=== PATIENT | female | born 1935 | race Caucasian/White ===

== ENCOUNTER 2020-12-25 20:45 | Outpatient (CLI) | payer MEDICARE | END 2020-12-25 20:46 | disposition critical access hospital (66) | LOC: EMS 20:45 | DX: S69.92XA Unspecified injury of left wrist, hand and finger(s), initial encounter (principal); W10.9XXA Fall (on) (from) unspecified stairs and steps, initial encounter; Y92.008 Other place in unspecified non-institutional (private) residence as the place of occurrence of the external cause | CPT/HCPCS: A0425; A0427 ==

== ENCOUNTER 2020-12-25 21:24 | Day surgery (SDC) | payer MEDICARE ==
[2020-12-25] MEDS ORDERED: SODIUM CHLORIDE 0.9% 1,000 ML IV STA (21:37)
[2020-12-25] MEDS ORDERED: MORPHINE 2 MG/ML CARPUJECT IVP STA (21:38)
[2020-12-25] MEDS ORDERED: AMPICILLIN/SULBACTAM 3 GM in SODIUM CHLORIDE 0.9% MINIBAG 100 ML IV STA (21:39)
--- NOTE | 2020-12-25 21:40 | ED Physician Documentation ---
History of Present Illness - Stated complaint Stated Complaint: GLF, LEFT WRIST INJURY - Chief complaint Chief Complaint: Trauma Ext - History obtained from History obtained from: Patient - Additonal information Additional information: 85-year-old woman presents status post fall after missing a step and falling onto her left hand, elbow, and hitting the left side of her forehead without loss of consciousness. She is not on blood thinners. Denies other injury. Review of Systems Cardiac: denies: Chest pain / pressure Respiratory: denies: Dyspnea GI: denies: Abdominal Pain Skin: denies: Lesions, Abrasion (s) Musculoskeletal: reports: Extremity pain, Extremity swelling. denies: Neck pain, Back pain Neurologic: denies: Focal weakness, Numbness PD PAST MEDICAL HISTORY - Present Medications Home Medications: Ambulatory Orders Medication Instructions Recorded Confirmed Atorvastatin [Lipitor] 10 mg ORAL DAILY 12/25/20 12/25/20 Sertraline [Zoloft] 25 mg PO DAILY 12/25/20 12/25/20 - Allergies Allergies/Adverse Reactions: Allergies Allergy/AdvReac Type Severity Reaction Status Date / Time No Known Drug Allergies Allergy Verified 12/25/20 21:38 PD ED PE NORMAL - Vitals Vital signs reviewed: Yes - General General: Alert and oriented X 3, No acute distress, Well developed/nourished - HEENT HEENT: Atraumatic, PERRL, EOMI - Neck Neck: Supple, no meningeal sign - Cardiac Cardiac: RRR - Respiratory Respiratory: No respiratory distress, Clear bilaterally - Abdomen Abdomen: Non tender, Non distended, Other (pelvis stable) - Back Back: No spinal TTP - Derm Derm: Normal color, Warm and dry - Extremities Extremities: Other (L clavicle ttp. L distal forearm with visible deformity and open fracture) - Neuro Neuro: Alert and oriented X 3, No motor deficit, No sensory deficit - Psych Psych: Normal mood, Normal affect Results - Vitals Vitals: Vital Signs - 24 hr 12/25/20 12/25/20 12/25/20 21:25 21:38 23:38 Temperature 35.8 C L 36 C L 36.3 C L Heart Rate 61 60 85 Heart Rate [ Radial] Respiratory 16 15 16 Rate Blood Pressure 140/85 H 127/76 143/78 H Blood Pressure [Right Brachial artery] O2 Saturation 100 100 100 12/26/20 12/26/20 12/26/20 01:00 02:40 05:48 Temperature 36.7 C 36.6 C Heart Rate 81 Heart Rate [ 86 89 Radial] Respiratory 15 22 20 Rate Blood Pressure 136/78 H Blood Pressure 143/85 H 111/57 L [Right Brachial artery] O2 Saturation 99 100 96 Oxygen O2 Source Room air - Labs Labs: Laboratory Tests 12/25/20 12/25/20 12/26/20 21:46 21:46 00:20 WBC 8.1 RBC 3.95 L Hgb 12.5 Hct 38.6 MCV 97.7 MCH 31.6 H MCHC 32.4 RDW 12.5 Plt Count 176 MPV 10.0 Neut # (Auto) 4.1 Lymph # (Auto) 3.1 Beaver # (Auto) 0.8 Eos # (Auto) 0.1 Baso # (Auto) 0.0 Absolute Nucleated RBC 0.00 Nucleated RBC % 0.0 Sodium 138 Potassium 4.0 Chloride 104 Carbon Dioxide 23 Anion Gap 11.0 BUN 32 H Creatinine 1.1 H Estimated GFR (MDRD) 47 L Glucose 129 H Calcium 8.6 Total Bilirubin 0.6 AST 20 ALT 13 Alkaline Phosphatase 82 Total Protein 6.9 Albumin 3.8 Globulin 3.1 Albumin/Globulin Ratio 1.2 Lipase 35 Nasal Adenovirus (PCR) NOT DETECTED Nasal B. parapertussis DNA (PCR) NOT DETECTED Nasal Coronavir 229E PCR NOT DETECTED Nasal Coronavir HKU1 PCR NOT DETECTED Nasal Coronavir NL63 PCR NOT DETECTED Nasal Coronavir OC43 PCR NOT DETECTED Nasal Enterovir/Rhinovir PCR NOT DETECTED Nasal Influenza B PCR NOT DETECTED Nasal Influenza A PCR NOT DETECTED Nasal Parainfluen 1 PCR NOT DETECTED Nasal Parainfluen 2 PCR NOT DETECTED Nasal Parainfluen 3 PCR NOT DETECTED Nasal Parainfluen 4 PCR NOT DETECTED Nasal RSV (PCR) NOT DETECTED Nasal B.pertussis DNA PCR NOT DETECTED Nasal C.pneumoniae (PCR) NOT DETECTED Heath Human Metapneumo PCR NOT DETECTED Nasal M.pneumoniae (PCR) NOT DETECTED Nasal SARS-CoV-2 (PCR) NOT DETECTED Ethyl Alcohol < 5.0 Procedures - Reduction Body part reduced: Left, Forearm Fracture or dislocation: Fracture Anesthesia: Dilaudid Reduction aftercare: Xray confirms reduction, Alignment improved, Splint applied, Sling, Patient tolerated well PD MEDICAL DECISION MAKING - ED course ED course: 85-year-old relatively healthy woman presents with distal comminuted open left radius and ulna fracture. antibiotics given. fracture reduced. Discussed with Dr. Landaverde for admission to same-day surgery. Discussed with Dr. Gregory for consulting for medical clearance. Departure - Departure Disposition: ED Transfer to [facility] Clinical Impression: Distal radius fracture, left, Fx distal ulna-open, Fracture, clavicle, Fall from standing Condition: Stable Discharge Date/Time: 12/26/20 02:06
[2020-12-25 21:50] LABS: BASOPHILS % (AUTO) 0.4 %; EOSINOPHILS # (AUTO) 0.1 10^3/uL (0.0-0.7); EOSINOPHILS % (AUTO) 1.4 %; HCT - HEMATOCRIT 38.6 % (37.0-47.0); HGB - HEMOGLOBIN 12.5 g/dL (12.0-16.0); LYMPHOCYTES # (AUTO) 3.1 10^3/uL (1.5-3.5); LYMPHOCYTES % (AUTO) 37.8 %; MEAN CORPUSCULAR HEMOGLOBIN 31.6 pg (27.0-31.0); MEAN CORPUSCULAR HGB CONC 32.4 g/dL (32.0-36.0); MEAN CORPUSCULAR VOLUME 97.7 fL (81.0-99.0); MONOCYTES # (AUTO) 0.8 10^3/uL (0.0-1.0); MONOCYTES % (AUTO) 9.4 %; NEUTROPHILS # (AUTO) 4.1 10^3/uL (1.5-6.6); NEUTROPHILS % (AUTO) 50.9 %; PLT - PLATELET COUNT 176 10^3/uL (130-450); RED BLOOD COUNT 3.95 10^6/uL (4.20-5.40); RED CELL DISTRIBUTION WIDTH 12.5 % (12.0-15.0); WHITE BLOOD COUNT 8.1 x10^3/uL (4.8-10.8)
[2020-12-25 22:04] LABS: ALBUMIN 3.8 g/dL (3.2-5.5); ALBUMIN/GLOBULIN RATIO 1.2 (1.0-2.2); ALKALINE PHOSPHATASE 82 IU/L (42-121); ALT ALANINE AMINOTRANSFERASE 13 IU/L (10-60); AST ASPARTATE AMINOTRANSFERASE 20 IU/L (10-42); BILIRUBIN,TOTAL 0.6 mg/dL (0.2-1.0); BUN - BLOOD UREA NITROGEN 32 mg/dL (6-20); CALCIUM 8.6 mg/dL (8.5-10.3); CARBON DIOXIDE - CO2 23 mmol/L (21-32); CHLORIDE 104 mmol/L (101-111); CREATININE 1.1 mg/dL (0.4-1.0); ETOH - ETHANOL < 5.0 mg/dL; GFR - MDRD 47 (>89); GLUCOSE 129 mg/dL (70-100); LIPASE 35 U/L (22-51); SODIUM 138 mmol/L (135-145); TOTAL PROTEIN 6.9 g/dL (6.7-8.2)
[2020-12-25] MEDS ORDERED: IOPAMIDOL-300 100 ML VIAL ONE (22:20)
[2020-12-25] MEDS ORDERED: IOPAMIDOL-300 100 ML VIAL IVP ONE (22:57)
[2020-12-25] MEDS ORDERED: HYDROmorphone 0.5 MG/0.5 ML SYRINGE IVP STA (23:19)
[2020-12-26] MEDS ORDERED: KETOROLAC 15 MG/ML VIAL IVP PRN ×2 (00:24→02:56)
[2020-12-26] MEDS ORDERED: HYDROmorphone 0.5 MG/0.5 ML SYRINGE IVP PRN ×2 (00:24→10:31)
[2020-12-26] MEDS ORDERED: ONDANSETRON 4 MG/2 ML VIAL IVP PRN ×3 (00:24→10:31)
[2020-12-26] MEDS ORDERED: METOCLOPRAMIDE 10 MG/2 ML VIAL IVP PRN ×2 (00:24→02:56)
[2020-12-26] MEDS ORDERED: ACETAMINOPHEN 325 MG TABLET PO PRN ×2 (00:24→02:55)
[2020-12-26] MEDS ORDERED: HYDROmorphone 1 MG/ML CARPUJECT IVP STA ×2 (00:31→01:09)
[2020-12-26] MEDS ORDERED: oxyCODONE 5 MG TABLET PO PRN ×3 (00:49→13:16)
--- NOTE | 2020-12-26 00:55 | CONSULTATION NOTE ---
Referring Provider Name of Referring Provider:: Dr. Eduar Landaverde Consult Date: 12/26/20 Chief Complaint - Chief Complaint Chief Complaint: Left wrist pain History of Present Illness - Admitted From Admitted From:: Home - History Obtained From Records Reviewed: Yes History obtained from: Patient, Daugther, ER Physician, EMR - History of Present Illness HPI Comment/Other: This is a 85-year-old female with a past medical history significant for anxiety, hyperlipidemia who presents today after a fall. She is visiting from [facility] and is here on vacation which started today. She reports that she was on the deck when she had a misstep and fell on her left side. She denie s any loss of consciousness or syncope. From what she can remember, she believes she tried to catch herself with her left hand but ended up hitting her shoulder and head as well. She reports no headache or change in vision. She states most of her pain is in her left wrist and left shoulder. She reports no numbness in the left upper extremity. She has sensation throughout her arm. She reports being relatively healthy. She is normally quite active and ambulates on her own. She denies any cardiac history including heart disease, heart failure, arrhythmia. She is able to walk a flight of stairs without chest pain or dyspnea. In the emergency department, x-ray of the left wrist revealed significantly comminuted and displaced fracture of the distal radius and ulna. CT of the chest revealed an acute fracture of the medial aspect of the left clavicle. Given the above findings, orthopedic surgery plan to take the patient to the OR tomorrow for intervention and medicine was consulted for preop evaluation. I did discuss goals of care with the patient and she would like to be a full code. History - Past Medical History Cardiovascular: reports: Hypertension, High cholesterol Psych: reports: Anxiety MRSA Hx?: No - Past Surgical History HEENT: reports: Cataracts - Family & Social History Family History Comment/Other: She reports her mother had a history of stroke later followed by an intracranial hemorrhage. Her father also had a stroke. Living arrangement: At home Social History Notes: She lives in [place] and is currently visiting [facility] on vacation. She is a non-smoker and rarely drinks alcohol. Meds/Allgy - Home Medications Home Medications: Ambulatory Orders Medication Instructions Recorded Confirmed Atorvastatin [Lipitor] 10 mg ORAL DAILY 12/25/20 12/25/20 Sertraline [Zoloft] 25 mg PO DAILY 12/25/20 12/25/20 - Allergies Allergies/Adverse Reactions: Allergies Allergy/AdvReac Type Severity Reaction Status Date / Time No Known Drug Allergies Allergy Verified 12/25/20 21:38 Review of Systems - Constitutional Constitutional: denies: Fever, Chills - Eyes Eyes: denies: Blurred vision, Vision loss - Cardiovascular Cariovascular: denies: Chest pain, Lightheadedness, Syncope, Exertional dyspnea, Decr. exercise tolerance - Respiratory Respiratory: denies: Cough, SOB at rest, SOB with exertion - Gastrointestinal Gastrointestinal: denies: Abdominal pain, Nausea, Vomiting - Genitourinary Genitourinary: denies: Dysuria, Frequency, Urgency, Hematuria - Musculoskeletal Musculoskeletal: reports: Muscle aches, Limited range of motion, Joint pain - Integumentary Integumentary: denies: Rash - Neurological Neurological: denies: General weakness, Headache, Dizziness, Numbness, Pre- existing deficit - Hematologic/Lymphatic Hematologic/Lymphatic: denies: Bleeding tendencies - All Other Systems All Other Systems: reports: Reviewed and negative Exam - Vital Signs Reviewed Vital Signs: Yes Vital Signs: Vital Signs x48h Temp Pulse Resp BP Pulse Ox 12/25/20 23:38 36.3 C L 85 16 143/78 H 100 12/25/20 21:38 36 C L 60 15 127/76 100 12/25/20 21:25 35.8 C L 61 16 140/85 H 100 - Physical Exam General Appearance: positive: No acute distress, Alert Eyes Bilateral: positive: Normal inspection, PERRL, Conjunctivae nml ENT: positive: ENT inspection nml Neck: positive: Nml inspection Respiratory: positive: No respiratory distress. negative: Wheezes, Rales Cardiovascular: positive: Regular rate & rhythm, No murmur. negative: Tachycardia Abdomen: positive: Non-tender, No distention. negative: Tenderness, Guarding, Rebound Skin: positive: Warm, Dry, Other (There is a small 5 x 4 cm abrasion over the left side of her scalp.) Extremities: positive: No pedal edema, Other (There is marked deformity of the distal left forearm with a small laceration over the posterior aspect of the forearm. There is also significant ecchymosis. Sensation is intact. Less than 2-second capillary refill.) Neurologic/Psychiatric: negative: Disoriented to person, Disoriented to place Conclusion/Plan - Diagnosis Diagnosis: 1) Preop evaluation. 2) Left distal radius and ulna fracture. 3) Left Clavicular fracture. 4) Anxiety. 5) Hyperlipidemia - Plan Plan: She is able to function greater than 4 METS and has no known cardiac history. She currently has no angina or dyspnea. Her Burnett perioperative risk is 0.2%. EKG reveals a sinus rhythm without evidence of ischemia. At this time, she is medically optimized to proceed with surgical intervention. We will continue the Dilaudid and oxycodone as needed for pain control. Management of the distal radius and ulna fracture as well as the clavicular fracture will be deferred to orthopedic surgery. The distal fracture will be reduced by the ER Physician prior to admission. We will continue her home atorvastatin and sertraline for her anxiety and hyperlipidemia. - Lab Results Fish Bones: 12/25/20 21:46 12/25/20 21:46 - Diagnostic Imaging Results Diagnostic Imaging Results: positive: Prelim report reviewed - EKG Results EKG Interpreted Independently: Yes EKG Comparison: No prior EKG EKG Findings: EKG reveals a normal sinus rhythm without evidence of ischemia.
[2020-12-26] MEDS ORDERED: LACTATED RINGERS 1,000 ML IV SCH ×3 (01:00→11:00)
[2020-12-26] MEDS ORDERED: HYDROmorphone 1 MG/ML CARPUJECT IVP PRN ×2 (01:07→02:55)
[2020-12-26 01:39] LABS: B. PARAPERTUSSIS- RESP PCR PAN NOT DETECTED; B. PERTUSSIS- RESP PCR PANEL NOT DETECTED; C. PNEUMONIAE- RESP PCR PANEL NOT DETECTED; CORONAVIRUS 229E-RESP PCR NOT DETECTED; CORONAVIRUS HKU1-RESP PCR NOT DETECTED; CORONAVIRUS NL63-RESP PCR NOT DETECTED; CORONAVIRUS OC43-RESP PCR NOT DETECTED; HUMAN METAPNEUMOVIRUS NOT DETECTED; INFLUENZA A- RESP PCR PANEL NOT DETECTED; INFLUENZA B - RESP PCR PANEL NOT DETECTED; M. PNEUMONIAE- RESP PCR PANEL NOT DETECTED; PARAINFLUENZA VIRUS 1 NOT DETECTED; PARAINFLUENZA VIRUS 2 NOT DETECTED; PARAINFLUENZA VIRUS 3 NOT DETECTED; PARAINFLUENZA VIRUS 4 NOT DETECTED; RHINOVIRUS/ENTEROVIRUS NOT DETECTED; RSV- RESP PCR PANEL NOT DETECTED; SARS-CoV-2 -RESP PCR PANEL NOT DETECTED
[2020-12-26] MEDS ORDERED: KETOROLAC 15 MG/ML VIAL ONE (02:42)
--- NOTE | 2020-12-26 08:39 | HISTORY & PHYSICAL EXAMINATION ---
HPI - History Obtained From History obtained from: Patient, Family (Medical providers) Exam limitations: No limitations - History of Present Illness Severity at the worst: reports: Moderate HPI Comment/Other: This is a 85-year-old woman on vacation with family in the [place] area. She [place] staying [place] and fell yesterday evening when she took a misstep on some steps, fell onto her left side including outstretched left hand, shoulder and head. She has localized pain primarily to the left wri st but also some in the clavicle but to lesser degree. She denies chest pain, shortness of breath, dizziness, syncope or loss of consciousness associated with her fall. She was seen in the emergency room following the fall and evaluated by Dr. Dalal. She was admitted to the hospital for evaluation by her hospitalist Dr. Verdugo and myself.She denies previous problems with her left wrist. She denies neurologic symptoms to her left hand. She denies pain to left elbow. She was given intravenous antibiotics for open presumed fracture of the left wrist, closed reduction and sugar tong splint toIn the emergency room.She seems to be doing well now, pain is controlled to left wrist. Her general health is relatively good. PMH/PSH - Past Medical History Cardiovascular: positive: Hypertension, High cholesterol Psych: positive: Anxiety MRSA Hx?: No - Past Surgical History HEENT: positive: Cataracts Social & Family Hx - Social History Does the pt smoke?: No Smoking Status: Never smoker Does the pt drink ETOH?: No Does the pt have substance abuse?: No Meds/Allgy - Home Medications Home Medications: Ambulatory Orders Medication Instructions Recorded Confirmed Atorvastatin [Lipitor] 10 mg ORAL DAILY 12/25/20 12/25/20 Sertraline [Zoloft] 25 mg PO DAILY 12/25/20 12/25/20 - Allergies Allergies/Adverse Reactions: Allergies Allergy/AdvReac Type Severity Reaction Status Date / Time No Known Drug Allergies Allergy Verified 12/25/20 21:38 Exam - Vital Signs Vital Signs: Vital Signs x48h Temp Pulse Pulse Resp BP BP Pulse Ox 12/26/20 05:48 36.6 C 89 20 111/57 L 96 12/26/20 02:40 36.7 C 86 22 143/85 H 100 12/26/20 01:00 81 15 136/78 H 99 - Physical Exam General Appearance: positive: No acute distress Respiratory: positive: No respiratory distress, Breath sounds nml Cardiovascular: positive: Regular rate & rhythm Peripheral Pulses: positive: 1+ Abdomen: positive: Non-tender Skin: positive: Color nml, Warm Neurologic/Psychiatric: positive: Oriented x3, Motor nml, Sensation nml Comments/Other: Examination of extremities: Tenderness medial left clavicle, no clinical deformity. Left shoulder is nontender without swelling or ecchymosis and no deformity. Left elbow is nontender without swelling. Left wrist show some deformity, swelling and laceration over the dorsum of the left wrist. This appears to be a puncture type wound, clean and not draining. There was some bloody drainage on the dressing. Color, motion and sensation intact to fingers left hand. Lower extremity examination shows no pain with movement of lower extremity joints. Results - Lab Results Fish Bones: 12/25/20 21:46 12/25/20 21:46 Other Lab Results: Lab Results x24hrs 12/26/20 12/25/20 12/25/20 Range/Units 00:20 21:46 21:46 WBC 8.1 (4.8-10.8) x10^3/uL RBC 3.95 L (4.20-5.40) 10^6/uL Hgb 12.5 (12.0-16.0) g/dL Hct 38.6 (37.0-47.0) % MCV 97.7 (81.0-99.0) fL MCH 31.6 H (27.0-31.0) pg MCHC 32.4 (32.0-36.0) g/dL RDW 12.5 (12.0-15.0) % Plt Count 176 (130-450) 10^3/uL MPV 10.0 (7.9-10.8) fL Neut # (Auto) 4.1 (1.5-6.6) 10^3/uL Lymph # (Auto) 3.1 (1.5-3.5) 10^3/uL Kaufman # (Auto) 0.8 (0.0-1.0) 10^3/uL Eos # (Auto) 0.1 (0.0-0.7) 10^3/uL Baso # (Auto) 0.0 (0.0-0.1) 10^3/uL Absolute Nucleated RBC 0.00 x10^3/uL Nucleated RBC % 0.0 /100WBC Sodium 138 (135-145) mmol/L Potassium 4.0 (3.5-5.0) mmol/L Chloride 104 (101-111) mmol/L Carbon Dioxide 23 (21-32) mmol/L Anion Gap 11.0 (6-13) BUN 32 H (6-20) mg/dL Creatinine 1.1 H (0.4-1.0) mg/dL Estimated GFR (MDRD) 47 L (>89) Glucose 129 H (70-100) mg/dL Calcium 8.6 (8.5-10.3) mg/dL Total Bilirubin 0.6 (0.2-1.0) mg/dL AST 20 (10-42) IU/L ALT 13 (10-60) IU/L Alkaline Phosphatase 82 (42-121) IU/L Total Protein 6.9 (6.7-8.2) g/dL Albumin 3.8 (3.2-5.5) g/dL Globulin 3.1 (2.1-4.2) g/dL Albumin/Globulin Ratio 1.2 (1.0-2.2) Lipase 35 (22-51) U/L Nasal Adenovirus (PCR) NOT DETECTED Nasal B. parapertussis DNA (PCR) NOT DETECTED Nasal Coronavir 229E PCR NOT DETECTED Nasal Coronavir HKU1 PCR NOT DETECTED Nasal Coronavir NL63 PCR NOT DETECTED Nasal Coronavir OC43 PCR NOT DETECTED Nasal Enterovir/Rhinovir PCR NOT DETECTED Nasal Influenza B PCR NOT DETECTED Nasal Influenza A PCR NOT DETECTED Nasal Parainfluen 1 PCR NOT DETECTED Nasal Parainfluen 2 PCR NOT DETECTED Nasal Parainfluen 3 PCR NOT DETECTED Nasal Parainfluen 4 PCR NOT DETECTED Nasal RSV (PCR) NOT DETECTED Nasal B.pertussis DNA PCR NOT DETECTED Nasal C.pneumoniae (PCR) NOT DETECTED Heath Human Metapneumo PCR NOT DETECTED Nasal M.pneumoniae (PCR) NOT DETECTED Nasal SARS-CoV-2 (PCR) NOT DETECTED Ethyl Alcohol < 5.0 mg/dL - Diagnostic Imaging Results Diagnostic Imaging Results: negative: Read independently (X-rays of the left wrist show markedly displaced left distal radius and distal ulna fractures, comminuted fracture, primarily extra-articular, shortening and overriding of fracture of distal radius. I suspect there was probable bone protrusion through skin from the marked displacement of the proxim) - Other Other Results/Comments: The x-rays of the left elbow are normal. CT scan suggest nondisplaced medial cl avicle fracture on left side. Impression/Plan - Problem List Problem List: 1. Open fracture left distal radius Plan irrigation and debridement of open fracture, antibiotics, open reduction internal fixation left distal radius and ulna. Although there is a variety of methods for wrist stabilization, I think the simplest and safest for her would be K wire fixation with multiple K wires. The main complication of this fracture in the short-term would be infection and long-term malunion with stiffness left wrist. Most patients her age with malunion still have reasonable function. Patient and daughter are in agreement to the recommended plan of treatment, most likely can be discharged today following surgery if she is doing well with orthopedic follow-up at home in the [place] area or she could return to [facility] be An informed consent has been obtained and signed by patient and family. I discussed the risk, goals and likelihood of achieving goals, alternatives, disability and rarely . 2. Left clavicle fracture This can be treated nonoperatively with a sling being utilized for pain. I have discussed the case with Dr. Verdugo who feels that there is no contraindications to surgery.
[2020-12-26] MEDS ORDERED: LIDOCAINE-MPF 2% 5 ML VIAL ONE (08:52)
[2020-12-26] MEDS ORDERED: PROPOFOL 200 MG/20 ML VIAL IVP ONE (08:52)
[2020-12-26] MEDS ORDERED: fentaNYL 100 MCG/2 ML VIAL ONE (08:53)
[2020-12-26] MEDS ORDERED: BUPIVACAINE 0.5%-EPI 1:200000 PF 30 ML VIAL SUBQ ONE (09:00)
[2020-12-26] MEDS ORDERED: BUPIVACAINE 0.5%-EPI 1:200000 PF 30 ML VIAL ONE (09:14)
[2020-12-26] MEDS ORDERED: DEXAMETHASONE 10 MG/ML VIAL ONE (09:37)
[2020-12-26] MEDS ORDERED: ROPIVACAINE 0.5% PF 20 ML AMPULE ONE ×2 (09:38)
[2020-12-26] MEDS ORDERED: ePHEDrine 50 MG/ML VIAL IVP ONE (10:13)
--- NOTE | 2020-12-26 10:16 | CT Report ---
PROCEDURE: CHEST W INDICATIONS: Chest trauma, blunt, high energy CONTRAST: IV CONTRAST: Isovue 300 ml: 100 PO CONTRAST: *NO PO CONTRAST TECHNIQUE: After the administration of intravenous contrast, images were acquired from the pulmonary apices to t he posterior costophrenic angles. Multiplanar MIP reformats were acquired. For radiation dose reduc tion, the following was used: automated exposure control, adjustment of mA and/or kV according to pa tient size. COMPARISON: Correlation is made with the accompanying CT examinations. FINDINGS: Image quality: Motion artifact is noted. Lungs and pleura: No acute air space opacities. No pleural effusions or pneumothorax. Central and peripheral airways are patent and normal in caliber. Mediastinum: Heart size is normal. No pericardial effusion. No mediastinal or hilar adenopathy by size criteria. Thoracic aorta and central pulmonary arteries are normal in size. Esophagus is vicente l in caliber. There is a small hiatal hernia. Bones and chest wall: There is a moderately displaced, comminuted fracture of the left medial clavic le, as on series 3 image 41. No displaced rib fractures can be seen. No suspicious bony lesions. No vertebral body compression fractures. There is accentuated thoracic kyphosis. Age-appropriate dege nerative changes are seen. No axillary or supraclavicular adenopathy by size criteria. The thyroid is normal in size and there are no incidental findings.. Abdomen: There is partial visualization of a simple appearing left renal cyst that measures up to 3. 3 cm. Visualized upper abdominal solid organs appear normal. Upper abdominal bowel loops are normal in caliber. IMPRESSION: Left medial clavicle fracture. No displaced rib fractures are seen. Incidental note is made of: Small hiatal hernia Left renal cyst partially seen Reviewed by: Reagan Gonsalves MD on 12/26/2020 9:15 AM LETHA Approved by: Reagan Gonsalves MD on 12/26/2020 9:15 AM LETHA Station ID: [id number]
--- NOTE | 2020-12-26 10:16 | ANESTHESIA ---
Pre-Anesthesia VS, & Labs - Diagnosis Diagnosis 1) Preop evaluation 2) Left distal radius and ulna fracture 3) Left Clavicular fracture 4) Anxiety 5) Hyperlipidemia - Procedure ORIF left wrist fracture Vital Signs: Temp Pulse Resp BP Pulse Ox 36.8 C 72 18 108/53 L 99 12/26/20 08:42 12/26/20 08:42 12/26/20 08:42 12/26/20 08:42 12/26/20 08:42 Height: 5 ft 3 in Weight (kg): 81.647 kg Body Mass Index: 31.8 BMI Classification: Obese - NPO >8 hours - Is Patient ?: No - Lab Results Current Lab Results: Laboratory Tests 12/25/20 21:46: Sodium 138, Potassium 4.0, Chloride 104, Carbon Dioxide 23, Anion Gap 11.0, BUN 32 H, Creatinine 1.1 H, Estimated GFR (MDRD) 47 L, Glucose 129 H, Calcium 8.6, Total Bilirubin 0.6, AST 20, ALT 13, Alkaline Phosphatase 82, Total Protein 6.9, Albumin 3.8, Globulin 3.1, Albumin/Globulin Ratio 1.2, Lipase 35, Ethyl Alcohol < 5.0 12/25/20 21:46: WBC 8.1, RBC 3.95 L, Hgb 12.5, Hct 38.6, MCV 97.7, MCH 31.6 H, MCHC 32.4, RDW 12.5, Plt Count 176, MPV 10.0, Neut # (Auto) 4.1, Lymph # (Auto) 3.1, Barber # (Auto) 0.8, Eos # (Auto) 0.1, Baso # (Auto) 0.0, Absolute Nucleated RBC 0.00, Nucleated RBC % 0.0 Lab results reviewed: Yes Fish Bones: 12/25/20 21:46 12/25/20 21:46 Home Medications and Allergies Home Medications: Ambulatory Orders Atorvastatin [Lipitor] 10 mg ORAL DAILY 12/25/20 Sertraline [Zoloft] 25 mg PO DAILY 12/25/20 Active Medications Acetaminophen (Acetaminophen 325 Mg Tablet) 650 mg PO Q6H PRN PRN Reason: Pain or Fever > 38C (100.4F) Hydromorphone HCl (Hydromorphone 1 Mg/Ml Carpuject) 1 mg IVP Q2HR PRN PRN Reason: PAIN Last Admin: 12/26/20 08:58 Dose: 1 mg Documented by: Lactated Ringer's (Lr) 1,000 mls @ 100 mls/hr IV .Q10H MAGDALENO Ketorolac Tromethamine (Ketorolac 15 Mg/Ml Vial) 15 mg IVP Q6H PRN PRN Reason: PAIN Stop: 12/31/20 02:52 Last Admin: 12/26/20 08:56 Dose: 15 mg Documented by: Metoclopramide HCl (Metoclopramide 10 Mg/2 Ml Vial) 5 mg IVP Q6H PRN PRN Reason: Nausea / Vomiting Ondansetron HCl (Ondansetron 4 Mg/2 Ml Vial) 4 mg IVP Q6H PRN PRN Reason: Nausea / Vomiting Oxycodone HCl (Oxycodone 5 Mg Tablet) 5 mg PO Q4HR PRN PRN Reason: PAIN Atorvastatin [Lipitor] 10 mg ORAL DAILY 12/25/20 Sertraline [Zoloft] 25 mg PO DAILY 12/25/20 Allergies/Adverse Reactions: Allergies Allergy/AdvReac Type Severity Reaction Status Date / Time No Known Drug Allergies Allergy Verified 12/25/20 21:38 Anes History & Medical History - Anesthetic History Family history of Anesthesia Complications: Denies Family history of Malignant Hyperthermia: Denies - Medical History Cardiovascular: reports: Hypertension, High cholesterol Gastrointestinal: reports: None Urinary: reports: None Neuro: reports: None Endocrine/Autoimmune: reports: None Blood Disorders: reports: None Skin: reports: None Smoking Status: Never smoker Psychosocial: reports: Depression History of Cancer?: No - Surgical History Eyes Ears Nose Throat (EENT): reports: Cataracts Exam General: Alert, Oriented x3, Cooperative, No acute distress Dental: WNL Mouth Openin Fingerbreadth Neck Mobility: Normal Mallampati classification: III Thyromental Distance: 4-6 cm Mental/Cognitive Status: Alert/Oriented X3, Normal for patient Cognitive Status: Within normal limits Plan Anesthesia Type: General, Supraclavicular Block Consent for Procedure(s) Verified and Reviewed: Yes Code Status: Attempt Resuscitation ASA classification: 2-Mild systemic disease Is this case an emergency?: No
--- NOTE | 2020-12-26 10:17 | CT Report ---
PROCEDURE: HEAD WO INDICATIONS: Head trauma, mod-severe TECHNIQUE: Noncontrast 4.5 mm thick angled axial sections acquired from the foramen magnum to the vertex. For r adiation dose reduction, the following was used: automated exposure control, adjustment of mA and/or kV according to patient size. COMPARISON: Correlation is made with the accompanying CT examinations, 12/25/2020. FINDINGS: Image quality: Excellent. CSF spaces: Basal cisterns are patent. No extra-axial fluid collections. Ventricles are normal in size and shape. Brain: No midline shift. No intracranial masses or hemorrhage. Francis-white matter interface is norm al. Skull and face: Calvarium and visualized facial bones are intact, without suspicious lesions. Sinuses: Visualized sinuses and mastoids are clear. IMPRESSION: No intracranial hemorrhage is seen. No significant intracranial abnormality is seen. Note: No significant discrepancy from the preliminary report. Reviewed by: Reagan Gonsalves MD on 12/26/2020 9:16 AM LETHA Approved by: Reagan Gonsalves MD on 12/26/2020 9:16 AM LETHA Station ID: [id number]
--- NOTE | 2020-12-26 10:19 | CT Report ---
PROCEDURE: CERVICAL SPINE WO INDICATIONS: Neck trauma, midline tenderness TECHNIQUE: Noncontrast 3 mm thick sections acquired from the skull base to the T4 level. Sagittal and coronal r eformats were then constructed. For radiation dose reduction, the following was used: automated exp osure control, adjustment of mA and/or kV according to patient size. COMPARISON: Correlation is made with the accompanying head CT examinations, 12/25/2020. FINDINGS: Image quality: Excellent. Bones: There is a moderately displaced, comminuted fracture seen of the left medial clavicle, as on series 4 image 54. No fractures or dislocations are seen of the cervical spine. Visualized superior ribs are intact. There is moderate disc space narrowing seen at C4-C5, C5-C6, and C6-C7. Partially bridging anterior o steophytes are seen inferiorly. Focal degenerative change can also be seen involving the C1-C2 interf norris anteriorly. Milder degenerative changes are seen elsewhere. Soft tissues: Soft tissue hematoma can be seen surrounding the left clavicle fracture. Prevertebral soft tissues are normal in thickness. No paravertebral hematomas. No apical pneumothor aces. The thyroid is small in size. IMPRESSION: Comminuted, moderately displaced left medial clavicle fracture, with associated soft tissue hematoma. No cervical spine fracture can be seen. Cervical spine degenerative changes are seen, which are worst inferiorly. Note: No significant discrepancy from the preliminary report. Reviewed by: Reagan Gonsalves MD on 12/26/2020 9:18 AM LETHA Approved by: Reagan Gonsalves MD on 12/26/2020 9:18 AM LETHA Station ID: [id number]
--- NOTE | 2020-12-26 10:24 | CT Report ---
PROCEDURE: Abdomen/Pelvis W INDICATIONS: Abdominal trauma, blunt CONTRAST: IV CONTRAST: Isovue 300 ml: 100 PO CONTRAST: *NO PO CONTRAST TECHNIQUE: After the administration of IV contrast, 5 mm thick sections acquired from the diaphragms to the symp hysis. 5 mm thick coronal and sagittal reformats were acquired. For radiation dose reduction, the f ollowing was used: automated exposure control, adjustment of mA and/or kV according to patient size. COMPARISON: Correlation is made with the accompanying CT examinations, 12/25/2020. FINDINGS: Image quality: Excellent. ABDOMEN: Lung bases: Lung bases are clear. Heart size is normal. Solid organs: Liver and spleen are normal in size and enhancement. Gallbladder wall does not appear thickened. Biliary system is non dilated. Pancreas enhances normally. No adrenal nodules. Kidneys demonstrate normal size and enhancement. The superior pole of the left kidney, there is a pro minent parapelvic cyst versus upper pole hydronephrosis. At the inferior pole of the right kidney, th ere are prominent peripelvic cysts versus lower pole hydronephrosis. Peritoneum and bowel: Bowel loops demonstrate normal wall thickness and caliber. No free fluid or a ir. A normal appendix is incidentally noted. Diverticulosis can be seen, without gustavo findings of active diverticulitis. Nodes and vessels: No retroperitoneal or mesenteric adenopathy by size criteria. Aorta and inferior vena cava are normal in size. 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 Miscellaneous: No ventral hernias. PELVIS: Genitourinary: Bladder wall thickness is normal. Miscellaneous: No inguinal hernias or adenopathy. Bones: No suspicious bony lesions. No vertebral body compression fractures. Degenerative changes a re seen throughout, which are worst at the L5-S1 level. IMPRESSION: No significant acute posttraumatic abnormality can be seen. Both kidneys demonstrate parapelvic cysts versus hydronephrosis. Differential diagnosis includes bila teral UPJ obstruction. Please correlate with known patient history. A repeat contrast-enhanced scan o f the kidneys with 10 minute delayed images may also be helpful for further evaluation. Incidental note is made of: Retroaortic left renal vein Focal L5-S1 degenerative change Normal appendix Diverticulosis, without findings of active diverticulitis. Note: No significant discrepancy from the preliminary report. Reviewed by: Reagan Gonsalves MD on 12/26/2020 9:23 AM LETHA Approved by: Reagan Gonsalves MD on 12/26/2020 9:23 AM LETHA Station ID: [id number]
--- NOTE | 2020-12-26 10:26 | XRAY Report ---
PROCEDURE: Wrist 2 View LT INDICATIONS: POST REDUCTION TECHNIQUE: 2 views of the wrist were acquired. COMPARISON: 12/25/2020 FINDINGS: Bones: Comminuted fractures are seen involving the distal radius and distal ulna, which are improved in alignment compared to the prior plain films. The overlying casting material limits evaluation of fine detail. Soft tissues: Soft tissue swelling and soft tissue gas can be seen. IMPRESSION: Improved anatomic alignment on this post casting view. Note: No significant discrepancy from the preliminary report. Reviewed by: Reagan Gonsalves MD on 12/26/2020 9:25 AM LETHA Approved by: Reagan Gonsalves MD on 12/26/2020 9:25 AM LETHA Station ID: [id number]
--- NOTE | 2020-12-26 10:27 | XRAY Report ---
PROCEDURE: Shoulder 2 View LT INDICATIONS: shoulder pain s/p fall TECHNIQUE: 2 views of the shoulder were acquired. COMPARISON: None. FINDINGS: Bones: No fractures or dislocations. No suspicious bony lesions. Visualized ribs appear intact. A ge-appropriate degenerative changes are seen. Soft tissues: No suspicious soft tissue calcifications. The visualized lung demonstrates a normal a ppearance. IMPRESSION: No acute fracture or dislocation can be seen by plain film. Note: No significant discrepancy from the preliminary report. Reviewed by: Reagan Gonsalves MD on 12/26/2020 9:26 AM LETHA Approved by: Reagan Gonsalves MD on 12/26/2020 9:26 AM LETHA Station ID: [id number]
--- NOTE | 2020-12-26 10:28 | XRAY Report ---
PROCEDURE: Elbow 2 View LT INDICATIONS: FOOSH, elbow pain TECHNIQUE: 2 views of the elbow were acquired. COMPARISON: None. FINDINGS: Study is mildly limited by nonstandard positioning. Bones: No fractures or dislocations. No suspicious bony lesions. Soft tissues: No elbow joint effusion. No suspicious soft tissue calcifications. IMPRESSION: No fracture or dislocation can be seen on these limited plain films. Note: No significant discrepancy from the preliminary report. Reviewed by: Reagan Gonsalves MD on 12/26/2020 9:26 AM LETHA Approved by: Reagan Gonsalves MD on 12/26/2020 9:26 AM LETHA Station ID: [id number]
--- NOTE | 2020-12-26 10:29 | XRAY Report ---
PROCEDURE: Wrist 3 View LT INDICATIONS: FOOSH TECHNIQUE: 3 views of the wrist were acquired. COMPARISON: None FINDINGS: Bones: Prominently displaced, comminuted fractures can be seen of the distal radius and the distal ul na. There is a fracture fragments are displaced in the palmar direction in relation to the distal rad ial shaft and distal ulnar shaft. There is overlapping of fragments. No fracture of the carpal bones can be seen. No radiocarpal dislocation. Soft tissues: Soft tissue swelling and soft tissue gas can be seen. IMPRESSION: Prominently displaced, comminuted fractures of the distal radius and distal ulna. Soft tissue gas is seen, which is consistent with compound/open fractures. Note: No significant discrepancy from the preliminary report. Reviewed by: Reagan Gonsalves MD on 12/26/2020 9:28 AM LETHA Approved by: Reagan Gonsalves MD on 12/26/2020 9:28 AM LETHA Station ID: [id number]
[2020-12-26] MEDS ORDERED: ATROPINE ABBOJECT 1 MG/10 ML SYRINGE IVP PRN (10:31)
[2020-12-26] MEDS ORDERED: NALOXONE 0.4 MG/ML VIAL IVP PRN (10:31)
[2020-12-26] MEDS ORDERED: fentaNYL 100 MCG/2 ML VIAL IVP PRN (10:31)
[2020-12-26] MEDS ORDERED: MORPHINE 2 MG/ML CARPUJECT IVP PRN (10:31)
[2020-12-26] MEDS ORDERED: ePHEDrine 50 MG/ML VIAL IVP PRN (10:31)
[2020-12-26] MEDS ORDERED: ceFAZolin 1 GM VIAL ONE (10:48)
[2020-12-26] MEDS ORDERED: ONDANSETRON 4 MG/2 ML VIAL ONE (12:57)
[2020-12-26] MEDS ORDERED: KETOROLAC 15 MG/ML VIAL IVP STA (13:16)
[2020-12-26] MEDS ORDERED: LACTATED RINGERS 1,000 ML IV ONE (13:17)
--- NOTE | 2020-12-26 13:22 | OPERATIVE REPORT ---
Operative Report - General Procedure Date: 12/26/20 Planned Procedure: Irrigation and debridement open fracture left distal radius and ulna, open reduction internal fixation of open fracture left distal radius and ulna Pre-Op Diagnosis: Open fracture left distal radius and ulna, displaced Procedure Performed: Irrigation debridement open fractures left distal radius and left ulna, open reduction internal fixation with K wires left distal radius, repair of extensor pollicis longus tendon and extensor indices proprius tendon left wrist Post Op Diagnosis: Open, grade 2 fractures of the left distal radius and ulna with rupture of - Procedure Note Primary Surgeon: Eduar Landaverde MD Secondary Surgeon: Damien SPRAGUE Anesthesia Provider: Lynn Campbell Anesthesia Technique: General ET tube, Regional block Estimated Blood Loss (mL): 50 Indications: This is a 85-year-old woman on vacation from the [facility], took a fall late last night while vacationing here [place] the [employer]. She had a misstep fell onto outstretched left hand and left side with localized injury primarily to left wrist and to lesser degree left clavicle. She had evaluation and treatment room with attempt at closed reduction, administration of antibiotics and admission to the hospital where she was seen this morning and scheduled for surgical treatment however open, displaced left wrist fracture. She has rather marked displacement and comminution of the distal right and distal ulna, primarily X nuclear fractures. It appeared that the proximal fracture fragment the distal radius penetrated the skin and soft tissues leading to a open fracture of left distal radius and ulna. Her neurovascular status was intact. Findings: She had 5 cm laceration in total over the dorsum of the left wrist. There were 2 lacerations each measuring about 2-1/2 cm that were connected by 1 mm skin bridgeShe had 5 cm laceration in total over the dorsum of the left wrist. There were 2 lacerations each measuring about 2-1/2 cm that were connected by 1 mm s kin bridgeShe has thin, atrophic skinWith some ecchymosis over the dorsum of the left hand adjacent to the surrounding the wounds. Both fractures were relatively transverse.The distal radius fracture was comminuted with some missing bone and some soft tissue stripping of the periosteum at fracture site. The extensor pollicis longus and extensor indices proprius Were completely ruptured and retracted. Complications: none - Other Other Information/Narrative: This is a 85-year-old woman, brought to the operating room table. She is given a supraclavicular block and a general anesthetic, transferred to the operating room table in the supine position with the left arm over a arm extension table. A pneumatic tourniquet was applied to the proximal left arm. The left upper extremity was prepped and draped in a sterile manner usual fashion. A C-arm image intensifier was available and covered with a sterile drape and was ut ilized for fracture alignment and K wire fixation. A timeout procedure was done by the entire operating room team and all were in agreement. The skin edges were sharply debrided. The zone of injury was fully inspected. The fractures were identified, both proximal and distal and's, curettage and saline lavage was performed with approximately 1-1/2 L of saline, bulb syringe. The extensor tendons of all compartments dorsally were identified. The extensor indices proprius was partially shredded, fully ruptured and retracted. The extensor pollicis longus was more difficult to find but it was identified both proximally and distally with complete rupture and retraction. These tendon edges were tagged with 4-0 Vicryl suture. I elected to minimize fracture fixation and utilized multiple K wire fixation. This was done with fingertrap longitudinal traction and some direct manipulation at the fracture site. Multiple K wires, 0.062 inch were utilized; a total of 4 were inserted with the first 2 near the radial styloid and then 2 additional more ulnarly. All of the K wires were inserted from distal to proximal. These K wires were inserted percutaneously. The biplanar x-rays with the C arm showed satisfactory but not anatomic alignment and the stability was markedly improved. There was no clinical deformity. Next the extensor tendons were repaired using both a core and epi T9 repair using fluoroscopy Vicryl suture to both the extensor pollicis longus and extensor indices proprius tendons. Despite the relatively small size of these tendons and the injury from their rupture, a reasonably good repair was achieved that provided intact thumb extension and finger extension. The common extensor tendon was intact to all of the lesser fingers. And both wrist extensors and the second compartment were intact. The extensor carpi ulnaris also was intact. The skin was approximated with 4-0 Vicryl and the skin edges closed with a running 4-0 nylon suture. The K wires were cut external to the skin and capped with sterile balls. Xeroform was applied to the skin incision that was closed at the wound site of the fracture dorsally of the wrist. Gauze pin cushions were inserted around the K wires. A well-padded short arm fiberglass volar splint was applied with thumb spica extension. A tourniquet was utilized during the case, I 115 minutes with good return of circulation. A physician recruitment and outreach assistant was utilized and felt to be medically necessary with preparation of patient, retraction, protection of vital structure and closure/splint application. She tolerated procedure well. She received 2 g of Ancef intravenously prior to the procedure
--- NOTE | 2020-12-26 13:27 | Discharge Plan ---
Discharge Plan Problem Reviewed?: Yes Disposition: Home, Self Care Condition: Stable Diet: Regular Activity Restrictions: Do not push pull or lift Driving Restrictions: Yes (Do not operate a motor vehicle) Assistance Devices: Sling (Use sling for comfort) Weight Bearing: Do not push pull or lift Additional Instructions or Follow Up instructions: You will be discharged with a 2-day course of Keflex antibiotics to be taken 500 mg every 6 hours for 2 days total.Take scheduled Tylenol 650 mg every 4 hours up to 5 times a day and scheduled Aleve 2 tablets in a.m. 2 tablets in the p.m. for pain.For breakthrough pain greater than 8 out of 10 use 5 mg oxycodone every 4-6 hours as needed. You will need to follow-up with an orthopedic surgeon near where you live unless you want to come back to [facility] for postop visits. You can call our office for a postop visit if you like. No Smoking: If you smoke, Please STOP! Call for help.
--- NOTE | 2020-12-26 13:27 | XRAY Report ---
PROCEDURE: OR C-Arm Procedure INDICATIONS: left wrist fx TECHNIQUE: Fluoroscopic images were obtained during an operative procedure and submitted for interpre tation following the completion of the procedure. COMPARISON: Wrist plain films, 12/25/2020, 12/26/2020 FINDINGS: This study was performed for intraoperative localization. On these images, there is pinning seen of t he distal radius. There is improved anatomic alignment. Please correlate with intraoperative findings . IMPRESSION: Normal intraoperative study. Reviewed by: Reagan Gonsalves MD on 12/26/2020 12:26 PM AKNEELIMA Approved by: Reagan Gonsalves MD on 12/26/2020 12:26 PM AKNEELIMA Station ID: [id number]
[2020-12-26 18:00] VITALS: BP 127/57
--- NOTE | 2020-12-26 18:51 | ANESTHESIA POST OP EVALUATION ---
Anesthesia Post Eval - Post Anesthesia Eval Vitals: Last Vital Signs Temp 37.2 C 12/26/20 17:57 Pulse 92 12/26/20 17:57 Resp 16 12/26/20 17:57 BP 127/57 L 12/26/20 17:57 Pulse Ox 95 12/26/20 17:57 CV Function Including HR & BP: Stable Pain Control: Satisfactory Nausea & Vomiting: Negative Mental Status: Baseline Respiratory Status: Airway Patent Hydration Status: Satisfactory Anesthesia Complications: None
== END 2020-12-26 18:30 | disposition home or self-care (01) ==
LOC: ED 21:24 → MS2 12-26 00:24 → SDS 12-26 00:24 → MS2 12-26 00:24 → ED 12-26 02:06 → SDS 12-26 18:30
PROVIDERS: ATTEND Orthopaedic Surgery
PROC: 0PSL04Z Reposition Left Ulna with Internal Fixation Device, Open Approach (ICD-10-PCS; 2020-12-26)
PROC: 0LQ60ZZ Repair Left Lower Arm and Wrist Tendon, Open Approach (ICD-10-PCS; 2020-12-26)
PROC: 0LQ60ZZ Repair Left Lower Arm and Wrist Tendon, Open Approach (ICD-10-PCS; 2020-12-26)
PROC: 0PSJ04Z Reposition Left Radius with Internal Fixation Device, Open Approach (ICD-10-PCS; principal; 2020-12-26 09:00)
DX: S52.552B Other extraarticular fracture of lower end of left radius, initial encounter for open fracture type I or II (principal); S52.602B Unspecified fracture of lower end of left ulna, initial encounter for open fracture type I or II; S42.018A Nondisplaced fracture of sternal end of left clavicle, initial encounter for closed fracture; W10.9XXA Fall (on) (from) unspecified stairs and steps, initial encounter; Y92.098 Other place in other non-institutional residence as the place of occurrence of the external cause; S61.512A Laceration without foreign body of left wrist, initial encounter; S56.312A Strain of extensor or abductor muscles, fascia and tendons of left thumb at forearm level, initial encounter; S09.90XA Unspecified injury of head, initial encounter; E66.9 Obesity, unspecified; Z68.31 Body mass index [BMI] 31.0-31.9, adult; I10 Essential (primary) hypertension; F41.9 Anxiety disorder, unspecified; Z20.822 Contact with and (suspected) exposure to COVID-19; E78.5 Hyperlipidemia, unspecified
CPT/HCPCS: 25270; 25605; 25607; 25652; 36415; 70450; 71260; 72125; 73030; 73070; 73100; 73110; 74177; 80053; 83690; 85025; 87631; 93005; 96365; 96375; 96376; 99283; 99285; A9270; C1713; G0480; J1170; J7120; Q9967; 0202U; 80048; 80320